=== PATIENT | female | born 1995 | race African-American/Black ===

== ENCOUNTER 2016-07-20 10:47 | Emergency (ER) | payer MEDICAID, OTHER ==
[~2016-07-20] VITALS: Ht 170.2 cm; Wt 68.0 kg
[2016-07-20 10:48] VITALS: BP 133/76; PULSE 120; RESP 16; TEMP 98; O2SAT 100
--- NOTE | 2016-07-20 15:02 | PD ---
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 She complains of vaginal irritation. No pelvic pain or bleeding. Symptoms severity is mild. Duration 3 days PFSH Past Medical History Medical History: Denies Significant Hx Tetanus Vaccination: < 5 Years ?: Not LMP: JUN 10, 2016 Past Surgical History Surgical History: No Previous Surgery Social History Alcohol Use: No Tobacco Use: No Substance Use: No Allergies-Medications (Allergen,Severity, Reaction): Coded Allergies: No Known Allergies (Unverified , 07/20/16) Reported Meds & Prescriptions Reported Meds & Active Scripts Active No Active Prescriptions or Reported Medications Review of Systems General / Constitutional: No: Fever HENT: No: Headaches Cardiovascular: No: Chest Pain or Discomfort Physical Exam Narrative GASTROINTESTINAL: Abdomen soft, non-tender, nondistended. Positive bowel sounds. No hepato-splenomegaly, or palpable masses. No guarding. SKIN: Inspection shows no rash or ulcers. Palpation shows no induration or nodules. Pelvic: Speculum exam was done. No cervical motion tenderness. No blood in the vault. She has a white vaginal discharge. Samples were sent to the lab Data Data Last Documented VS Vital Signs Date Time Temp Pulse Resp B/P Pulse Ox O2 Delivery O2 Flow Rate FiO2 07/20/16 10:48 98.0 120 16 133/76 100 Room Air 1 Orders Wet Prep Profile (07/20/16 14:30) Gc And Chlamydia Pcr (07/20/16 14:30) Ceftriaxone Inj (Rocephin Inj) (07/20/16 16:15) Lidocaine Pf 1% Inj (Xylocaine-Mpf 1% In (07/20/16 16:15) Azithromycin Powd Pack (Zithromax Powd P (07/20/16 16:15) Labs Laboratory Tests Test 07/20/16 14:30 Clue Cells (Wet Prep) NONE SEEN Vaginal Trichomonas (Wet Prep) NONE SEEN Vaginal Yeast (Wet Prep) NONE SEEN MDM Medical Decision Making Medical Screen Exam Complete: Yes Emergency Medical Condition: Yes Medical Record Reviewed: Yes Differential Diagnosis Vaginitis, PID, cervicitis Narrative Course I have reviewed the patient's electronic medical record. Wet prep is negative GC and Chlamydia was sent Treating her for cervicitis with a dose of Rocephin and a dose of Zithromax Stable for outpatient follow-up Diagnosis Primary Impression: Cervicitis Additional Instructions: The patient was advised to follow up with their physician and return if they worsen. Med/Other Pt SpecificInfo: Other Scripts No Active Prescriptions or Reported Meds Disposition: 01 DISCHARGE HOME Condition: Stable Bird Valerio MD Jul 20, 2016 15:02
[2016-07-20] MEDS ORDERED: AZITHROMYCIN PWD FOR SUSP 1 GM PACKET PO ONE (16:15)
[2016-07-20] MEDS ORDERED: LIDOCAINE HCL 1% PF 30 ML VIAL XX ONE (16:15)
[2016-07-20 18:20] LABS: CHLAMYDIA PCR NOT DETECTED (NOT DETECT); NEISSERIA PCR NOT DETECTED (NOT DETECT)
== END 2016-07-20 17:08 | disposition home or self-care (01) ==
LOC: NEPD 10:47
DX: N72 Inflammatory disease of cervix uteri (principal)
CPT/HCPCS: 87210; 87491; 87591; 96372; 99283; J0696